=== PATIENT | male | born 1935 | race Caucasian/White ===

== ENCOUNTER 2016-12-22 10:29 | Emergency (ER) | payer OTHER ==
[~2016-12-22] VITALS: Ht 182.9 cm; Wt 85.0 kg
[~2016-12-22 10:29] MED LIST: ADVA100A INH; LORT5TAB PO; METO5TAB PO; SIMV5TAB32 PO; SPIRCAP INH
[2016-12-22 10:32] VITALS: BP 127/62; PULSE 108; RESP 20; TEMP 97.9; O2SAT 95
--- NOTE | 2016-12-22 10:52 | PD ---
HPI . fall 1 week ago now with continued left hip pain Chief Complaint: Fall Time Seen by Provider: 10:45 Travel History International Travel<30 days: No Contact w/Intl Traveler<30days: No Traveled to known affect area: No History of Present Illness HPI 81-year-old male with history of hyperlipidemia, GERD, COPD here with complaints of left hip pain for approximately one week. Patient sustained a fall one week ago while at home and hurt his left hip along with his right elbow. Patient went into an urgent care and was seen and told that he had a sprain and need follow-up with his primary care provider. He had x-rays done there and there was no acute fracture. Patient has now continued to experience left hip pain that he rates as 8/10 with movement. He describes it as a sharp/ shooting pain localized primarily to the left hip/upper thigh area. He tells me at rest he is very comfortable. The pain causes difficulty ambulating and he has a difficult time advancing from a sitting to standing position. He has tried [id number] ibuprofen without much relief. He denies any numbness or tingling. He denies any other symptoms. He was told by his primary care provider that he would need a CT scan as the x-ray did not show anything. PFSH Past Medical History Blood Disorders: No Cancer: No Cardiovascular Problems: No High Cholesterol: Yes COPD: Yes Diminished Hearing: No Endocrine: No GERD: Yes Genitourinary: No Headaches: Yes Immune Disorder: No Musculoskeletal: No Neurologic: Yes Psychiatric: No Respiratory: Yes Tetanus Vaccination: Unknown Influenza Vaccination: Yes ?: Not Past Surgical History Abdominal Surgery: Yes (HERNIA SURGERY ) Other Surgery: Yes (VASECTOMY) Social History Alcohol Use: Yes (BEER OR LIQUOR DAILY ) Tobacco Use: No Substance Use: No Allergies-Medications (Allergen,Severity, Reaction): Coded Allergies: No Known Allergies (Verified , 06/29/03) Reported Meds & Prescriptions Reported Meds & Active Scripts Active Reported Vitamin B-12 (Cyanocobalamin) 1,000 Mcg Subl 1,000 Mcg SL DAILY Vitamin D (Cholecalciferol) 1,000 Unit Tab 1,000 Units PO DAILY Aspirin 81 Mg Chew 81 Mg CHEW DAILY Diclofenac Sodium DR (Diclofenac Sodium) 75 Mg Tabdr 75 Mg PO BID Escitalopram (Escitalopram Oxalate) 10 Mg Tab 10 Mg PO DAILY Omeprazole 20 Mg Tab 20 Mg PO DAILY Atorvastatin (Atorvastatin Calcium) 40 Mg Tab 40 Mg PO HS Spiriva Handihaler (Tiotropium Inh) 18 Mcg Cap 18 Mcg INH DAILY 1 capsule = 18 mcg Advair Hfa 12 GM Inh (Fluticasone-Salmeterol 12 GM Inh) 115-21 Mcg/Act Aer 2 Puff INH BID Review of Systems General / Constitutional: No: Fever Eyes: No: Visual changes HENT: No: Headaches Cardiovascular: No: Chest Pain or Discomfort Respiratory: No: Shortness of Breath Gastrointestinal: No: Abdominal Pain Genitourinary: No: Dysuria Musculoskeletal: Positive: Pain (left hip pain) Skin: No Rash Neurologic: No: Weakness Psychiatric: No: Depression Endocrine: No: Polydipsia Hematologic/Lymphatic: No: Easy Bruising Physical Exam Narrative GENERAL: AAO x 3, no acute distress, Well-nourished, well-developed patient. SKIN: Warm and dry. No visible rashes or bruising. HEAD: Normocephalic and atraumatic. EYES: No scleral icterus. No injection or drainage. ENT: No nasal drainage noted. Mucous membranes pink. Airway patent. NECK: Supple, trachea midline. No JVD. CARDIOVASCULAR: Regular rate and rhythm without murmurs, gallops, or rubs. HR 98 on exam. RESPIRATORY: Breath sounds equal bilaterally. No accessory muscle use. No rhonchi or rales. GASTROINTESTINAL: Abdomen soft, non-tender, nondistended. EXTREMITIES: No cyanosis or edema. + pain elicited with internal rotation of the left hip. Patient demonstrates instability when going from sitting to standing position. Straight leg raise negative bilaterally. There is no laxity of this joint. Posterior tibial pulse normal b/l. NEURO: strength in b/l LE 5/5. sensation normal. motor function normal BACK: Nontender without obvious deformity. No CVA tenderness. PSYCH: AAO x 3, normal affect. Data Data Last Documented VS Vital Signs Date Time Temp Pulse Resp B/P Pulse Ox O2 Delivery O2 Flow Rate FiO2 12/22/16 10:41 18 97 Room Air 12/22/16 10:32 97.9 108 127/[address] Hip W/O Contrast (12/22/16 ) MDM Medical Decision Making Medical Screen Exam Complete: Yes Emergency Medical Condition: Yes Medical Record Reviewed: Yes Differential Diagnosis hip pain, hip fracture, less likely avascular necrosis of femoral head Narrative Course 81 yr old male with GERD, COPD, and HLD here with left hip pain s/p fall 1 week ago now with continue hip pain. He had xrays done and they are negative. CT scan ordered. Last Impressions Lower Extremity CT 12/22/16 0000 Signed Impressions: Service Date/Time: Thursday, December 22, 2016 11:19 - CONCLUSION: 1. No acute fracture is identified. 2. There are old healed fractures of the right superior and inferior pubic rami. Peewee Gross MD CT without any acute fracture. There may be some component of sciatica along with possible bone contusion. This could continue to cause pain. I discussed with patient and his concern was whether or not he had a fracture. He is here specifically for CT scan. I discussed normal findings with him and he will follow up with his PCP. He will continue to use the ibuprofen. Patient verbalized understanding of instructions, questions were answered, and thanked me for their care. I advised them if their condition worsens, please return to the nearest emergency room for further care. Diagnosis Primary Impression: Hip pain Qualified Code: M25.552 - Pain of left hip joint Patient Instructions: General Instructions Additional Instructions: Continue to use her ibuprofen as you have been doing. Please follow-up with your primary care provider for further recommendations Disposition: 01 DISCHARGE HOME Condition: Stable Rachel Santillan December 22, 2016 10:52
[2016-12-22] MEDS ORDERED: VITA100064 PO (10:56)
[2016-12-22] MEDS ORDERED: SPIRCAP INH (10:56)
[2016-12-22] MEDS ORDERED: VITA100021 SL (10:56)
[2016-12-22] MEDS ORDERED: OMEP20TA PO (10:56)
[2016-12-22] MEDS ORDERED: ESCI10TA PO (10:56)
[2016-12-22] MEDS ORDERED: DICL75TA PO (10:56)
[2016-12-22] MEDS ORDERED: ADVA115A INH (10:56)
[2016-12-22] MEDS ORDERED: ATOR40TA16 PO (10:56)
[2016-12-22] MEDS ORDERED: ASPI81CH CHEW (10:56)
--- NOTE | 2016-12-22 11:42 | RADRPT ---
EXAM DATE/TIME: 12/22/2016 11:19 [facility] COMPARISON: No previous studies available for comparison. INDICATIONS : Posterior left hip pain. Fall 1 week ago, negative xrays RADIATION DOSE: 14.75 CTDIvol (mGy) MEDICAL HISTORY : None SURGICAL HISTORY : None. ENCOUNTER: Initial ACUITY: 1 day PAIN SCALE: 6/10 LOCATION: Left pelvis TECHNIQUE: Volumetric scanning of the hip was performed. Using automated exposure control and adjustment of the mA and/or kV according to patient size, radiation dose was kept as low as reasonably achievable to o btain optimal diagnostic quality images. FINDINGS: BONES: No fracture or dislocation is identified. There are old healed fractures of the right inferior and lacy perior pubic rami. There is slight buckling of the cortex along the left inferior pubic ramus with an appearance suggestive old healed fracture. JOINTS: There is mild joint space narrowing and osteophytes at the hip joints. There is severe facet hypertro phy in the inferior lumbar spine. SOFT TISSUES: No acute soft tissue abnormality is visualized. There is severe atherosclerotic disease. There has be en prior left inguinal hernia repair with mesh. CONCLUSION: 1. No acute fracture is identified. 2. There are old healed fractures of the right superior and inferior pubic rami. Peewee Gross MD on December 22, 2016 at 11:35 Board Certified Radiologist. This report was verified electronically.
== END 2016-12-22 12:11 | disposition home or self-care (01) ==
LOC: NEPD 10:29
DX: M25.552 Pain in left hip (principal)
CPT/HCPCS: 73700; 99284